=== PATIENT | female | born 1990 | race Caucasian/White ===

== ENCOUNTER 2021-12-17 21:57 | Emergency (ER) | payer BC, SELFPAY ==
[2021-12-18] MEDS ORDERED: Ketorolac Tromethamine 30 MG/ML VIAL ONE (00:48)
[2021-12-18 01:13] LABS: #Lymphocytes 0.9 thou/uL (1.20-3.40); #Monocytes 0.9 thou/uL (0.11-0.59); #Neutrophils 11.6 thou/uL (1.40-6.50); %Basophils 0.3 % (0.0-1.0); %Lymphocytes 6.4 % (21.0-51.0); %Monocytes 6.6 % (0.0-10.0); %Neutrophils 86.7 % (42.0-75.0); Mean Corpuscular HGB CONC 33.5 g/dL (32.0-36.0); Mean Corpuscular Hemoglobin 32.3 pg (27.0-31.0); Mean Corpuscular Volume 96.4 fL (78.0-98.0); Mean Platelet Volume 8.3 fL (7.4-10.4); Platelet Count 183 thou/uL (130-400); RBC Distribution Width 11.3 % (11.5-14.5); Red Blood Cell (RBC) Count 4.66 mill/uL (4.20-5.40); White Blood Cell (WBC) Count 13.4 thou/uL (4.8-10.8)
[2021-12-18 01:16] LABS: BHCG - Serum Negative (NEGATIVE); Pregs Control Background? CLEAR/WHITE (CLR/WHITE); Pregs Control Bar Appear? YES (CONTROL BAR)
[2021-12-18 01:32] LABS: ALT (SGPT) 8 U/L (8-55); AST (SGOT) 16 U/L (5-34); Albumin 4.7 g/dL (3.5-5.0); Alkaline Phosphatase 85 U/L (40-110); Anion Gap 19 mmol/L (10-20); BUN (Urea Nitrogen) 4 mg/dL (7.0-18.7); Bilirubin, Total 1.1 mg/dL (0.2-1.2); Calc. Creatinine Clearance 0 mL/min (70-130); Calcium 9.6 mg/dL (7.8-10.44); Carbon Dioxide 21 mmol/L (22-29); Chloride 98 mmol/L (98-107); Estimated GFR 109; Globulin 3.8 g/dL (2.4-3.5); Glucose 105 mg/dL (70-105); Lipase 4 U/L (8-78); Potassium 3.4 mmol/L (3.5-5.1); Protein, Total 8.5 g/dL (6.0-8.3); Sodium 135 mmol/L (136-145)
[2021-12-18] MEDS ORDERED: Ondansetron PF 4 MG/2 ML Vial ONE (04:50)
[2021-12-18 06:12] LABS: Bacteria/HPF None Seen HPF (None Seen); Bilirubin Negative (Negative); Blood, Urine Trace (Negative); Clarity Clear (Clear); Glucose, Urine (Dipstick) Normal (Negative); Ketone, Urine Trace mg/dL (Negative); Leukocyte Negative Leu/uL (Negative); Nitrite Negative (Negative); Protein, Urine (Dipstick) 10 mg/dL (Neg-Trace); Urobilinogen Normal mg/dL (Less than 2); pH, Urine 6.5 (5.0-9.0)
[2021-12-18 06:14] LABS: Specific Gravity, Urine 1.053 (1.002-1.036)
[2021-12-18] MEDS ORDERED: Iopamidol 370 76% 100 ML VIAL ONE (14:14)
== END 2021-12-18 06:29 | disposition home or self-care (01) ==
LOC: ERS 21:57
DX: R10.9 Unspecified abdominal pain (principal); R10.819 Abdominal tenderness, unspecified site; L40.9 Psoriasis, unspecified
CPT/HCPCS: 74177; 80053; 81003; 81015; 83690; 84703; 85025; 87086; 96374; 96375; J1885; J2405; Q9967

== ENCOUNTER 2021-12-18 13:14 | Inpatient (IN) | payer SELFPAY ==
[2021-12-18] MEDS ORDERED: Iopamidol 370 76% 50 ML VIAL FS ONE (14:35)
[2021-12-18] MEDS ORDERED: Iopamidol-370 76% 500 ML 1 ML ONE (14:35)
[2021-12-18] MEDS ORDERED: Ondansetron PF 4 MG/2 ML Vial ONE (14:57)
[2021-12-18] MEDS ORDERED: Ketorolac Tromethamine 30 MG/ML VIAL ONE (14:57)
[2021-12-18 15:03] LABS: Hemoglobin 13.8 g/dL (12.0-16.0); Mean Corpuscular HGB CONC 33.3 g/dL (32.0-36.0); Mean Corpuscular Hemoglobin 32.1 pg (27.0-31.0); Mean Corpuscular Volume 96.4 fL (78.0-98.0); Mean Platelet Volume 8.3 fL (7.4-10.4); Platelet Count 162 thou/uL (130-400); RBC Distribution Width 11.4 % (11.5-14.5); Red Blood Cell (RBC) Count 4.29 mill/uL (4.20-5.40); White Blood Cell (WBC) Count 20.3 thou/uL (4.8-10.8)
[2021-12-18 15:22] LABS: Band 27 % (5-11); Lymphocytes 5 % (21-51); MDiff Complete? YES; Metamyelocyte 3 % (0-0); Monocytes 4 % (0-10); Neutrophil 60 % (42-75); Platelet Morphology Comment Appears Adequate; RBC Morphology Normal
[2021-12-18 15:36] LABS: Anion Gap 19 mmol/L (10-20); BUN (Urea Nitrogen) 4 mg/dL (7.0-18.7); Calc. Creatinine Clearance 0 mL/min (70-130); Calcium 8.1 mg/dL (7.8-10.44); Carbon Dioxide 17 mmol/L (22-29); Chloride 100 mmol/L (98-107); Estimated GFR 116; Glucose 94 mg/dL (70-105); Protein, Total 7.1 g/dL (6.0-8.3); Sodium 132 mmol/L (136-145)
[2021-12-18 15:37] LABS: ALT (SGPT) 11 U/L (8-55); AST (SGOT) 24 U/L (5-34); Alkaline Phosphatase 78 U/L (40-110); Globulin 3.1 g/dL (2.4-3.5); Lipase Less than 4 U/L (8-78)
[2021-12-18 15:40] LABS: Bacteria/HPF None Seen HPF (None Seen); Bilirubin Negative (Negative); Blood, Urine Trace (Negative); Clarity Turbid (Clear); Glucose, Urine (Dipstick) Normal (Negative); Ketone, Urine 80 mg/dL (Negative); Leukocyte 25 Leu/uL (Negative); Nitrite Negative (Negative); Protein, Urine (Dipstick) Negative (Neg-Trace); RBC/HPF 0-3 HPF (0-3); Specific Gravity, Urine 1.008 (1.002-1.036); Urobilinogen Normal mg/dL (Less than 2)
[2021-12-18 16:03] LABS: BHCG - Serum Negative (NEGATIVE); Pregs Control Background? CLEAR/WHITE (CLR/WHITE); Pregs Control Bar Appear? YES (CONTROL BAR)
[2021-12-18 16:08] LABS: SARS-CoV-2 NAA Rapid Test Not Detected (NotDetected)
[2021-12-18 16:19] LABS: Magnesium 1.6 mg/dL (1.6-2.6)
[2021-12-18] MEDS ORDERED: Cefepime 2 GM VIAL ONE (16:25)
[2021-12-18] MEDS ORDERED: metroNIDAZOLE 500 MG/100 ML BAG ONE (17:10)
[2021-12-18] MEDS ORDERED: Morphine 4 MG/ML VIAL ONE (17:51)
[2021-12-18] MEDS ORDERED: Fentanyl 100 MCG/2 ML VIAL ONE ×2 (18:41→19:50)
[2021-12-18] MEDS ORDERED: Acetaminophen 325 MG TAB PO PRN (20:34)
[2021-12-18] MEDS ORDERED: Ondansetron PF 4 MG/2 ML Vial IVP PRN (20:34)
[2021-12-18 22:41] VITALS: BMI 25.4
[2021-12-18] MEDS: Sodium Chloride 0.9% 1,000 ML IV SCH ×2 (23:52→23:55)
[2021-12-18] MEDS: Senokot S 8.6-50 MG TAB PO SCH (23:58)
[2021-12-18] MEDS: Famotidine 20 MG TAB PO SCH (23:58)
[2021-12-19] MEDS ORDERED: Ketorolac Tromethamine 30 MG/ML VIAL IVP SCH (00:15)
[2021-12-19] MEDS: metroNIDAZOLE 500 MG in Premix Bag 1 BAG IVPB SCH ×2 (00:31→09:20)
[2021-12-19] MEDS: HYDROcodone/Acetaminophen 5/325 mg Tablet PO PRN ×2 (04:57→21:10)
[2021-12-19 05:39] LABS: #Lymphocytes 0.8 thou/uL (1.20-3.40); #Monocytes 0.8 thou/uL (0.11-0.59); #Neutrophils 11.8 thou/uL (1.40-6.50); %Basophils 0.1 % (0.0-1.0); %Eosinophils 0.2 % (0.0-10.0); %Lymphocytes 5.8 % (21.0-51.0); %Monocytes 6.1 % (0.0-10.0); %Neutrophils 87.8 % (42.0-75.0); Hemoglobin 11.5 g/dL (12.0-16.0); Mean Corpuscular HGB CONC 32.5 g/dL (32.0-36.0); Mean Corpuscular Hemoglobin 31.8 pg (27.0-31.0); Mean Corpuscular Volume 97.9 fL (78.0-98.0); Mean Platelet Volume 8.6 fL (7.4-10.4); Platelet Count 136 thou/uL (130-400); RBC Distribution Width 11.3 % (11.5-14.5); Red Blood Cell (RBC) Count 3.62 mill/uL (4.20-5.40); White Blood Cell (WBC) Count 13.4 thou/uL (4.8-10.8)
[2021-12-19 05:54] LABS: Anion Gap 12 mmol/L (10-20); BUN (Urea Nitrogen) 5 mg/dL (7.0-18.7); Calc. Creatinine Clearance 126 mL/min (70-130); Calcium 8.3 mg/dL (7.8-10.44); Carbon Dioxide 22 mmol/L (22-29); Chloride 101 mmol/L (98-107); Estimated GFR 120; Glucose 82 mg/dL (70-105); Potassium 3.3 mmol/L (3.5-5.1); Sodium 132 mmol/L (136-145)
[2021-12-19] MEDS: Enoxaparin Sodium 40 MG/0.4 ML SYRINGE SC SCH (09:19)
[2021-12-19] MEDS: Polyethylene Glycol 3350 17 GM Packet PO SCH (09:24)
[2021-12-19] MEDS: Famotidine 20 MG TAB PO SCH ×2 (09:24→20:47)
[2021-12-19] MEDS: Senokot S 8.6-50 MG TAB PO SCH ×2 (09:25→20:05)
[2021-12-19] MEDS: Sodium Chloride 0.9% 1,000 ML IV SCH (17:08)
[2021-12-19] MEDS: Cefepime 2 GM in Sodium Chloride 0.9% 100 ML IVPB SCH (20:49)
[2021-12-20] MEDS ORDERED: Lidocaine 5% Patch TD SCH (01:00)
[2021-12-20] MEDS: Sodium Chloride 0.9% 1,000 ML IV SCH ×4 (01:17→16:41)
[2021-12-20 05:29] LABS: #Eosinphils 0.1 thou/uL (0.0-0.7); #Lymphocytes 0.6 thou/uL (1.20-3.40); #Monocytes 0.7 thou/uL (0.11-0.59); #Neutrophils 7.7 thou/uL (1.40-6.50); %Basophils 0.2 % (0.0-1.0); %Eosinophils 0.6 % (0.0-10.0); %Monocytes 7.8 % (0.0-10.0); %Neutrophils 84.4 % (42.0-75.0); Hemoglobin 10.6 g/dL (12.0-16.0); Mean Corpuscular HGB CONC 32.8 g/dL (32.0-36.0); Mean Corpuscular Hemoglobin 32.3 pg (27.0-31.0); Mean Corpuscular Volume 98.5 fL (78.0-98.0); Mean Platelet Volume 8.5 fL (7.4-10.4); Platelet Count 135 thou/uL (130-400); RBC Distribution Width 11.3 % (11.5-14.5); Red Blood Cell (RBC) Count 3.28 mill/uL (4.20-5.40); White Blood Cell (WBC) Count 9.1 thou/uL (4.8-10.8)
[2021-12-20 05:45] LABS: Anion Gap 10 mmol/L (10-20); BUN (Urea Nitrogen) 5 mg/dL (7.0-18.7); Calc. Creatinine Clearance 128 mL/min (70-130); Calcium 8.4 mg/dL (7.8-10.44); Carbon Dioxide 24 mmol/L (22-29); Chloride 106 mmol/L (98-107); Estimated GFR 120; Glucose 98 mg/dL (70-105); Potassium 3.2 mmol/L (3.5-5.1); Sodium 137 mmol/L (136-145)
[2021-12-20] MEDS: Cefepime 2 GM in Sodium Chloride 0.9% 100 ML IVPB SCH ×2 (09:22→20:19)
[2021-12-20] MEDS: Famotidine 20 MG TAB PO SCH ×2 (09:23→20:20)
[2021-12-20] MEDS: Polyethylene Glycol 3350 17 GM Packet PO SCH (09:23)
[2021-12-20] MEDS: Enoxaparin Sodium 40 MG/0.4 ML SYRINGE SC SCH (09:23)
[2021-12-20] MEDS: Senokot S 8.6-50 MG TAB PO SCH ×2 (09:23→20:19)
[2021-12-20] MEDS: Ketorolac Tromethamine 30 MG/ML VIAL IVP PRN ×2 (10:18→21:26)
[2021-12-20] MEDS ORDERED: Lidocaine Patch Removal TOP SCH (13:00)
[2021-12-20 20:21] VITALS: TEMP 98.5
[2021-12-20] MEDS ORDERED: Dicyclomine 20 MG TAB PO PRN (21:28)
[2021-12-21] MEDS: Sodium Chloride 0.9% 1,000 ML IV SCH ×2 (01:12→09:32)
[2021-12-21] MEDS: HYDROcodone/Acetaminophen 5/325 mg Tablet PO PRN (03:47)
[2021-12-21] MEDS ORDERED: Lidocaine 5% Patch TD SCH (06:00)
[2021-12-21 06:10] LABS: #Lymphocytes 0.8 thou/uL (1.20-3.40); #Monocytes 0.8 thou/uL (0.11-0.59); %Basophils 0.2 % (0.0-1.0); %Eosinophils 0.4 % (0.0-10.0); %Lymphocytes 9.3 % (21.0-51.0); %Monocytes 9.4 % (0.0-10.0); %Neutrophils 80.8 % (42.0-75.0); Hemoglobin 10.4 g/dL (12.0-16.0); Mean Corpuscular HGB CONC 32.9 g/dL (32.0-36.0); Mean Corpuscular Hemoglobin 32.1 pg (27.0-31.0); Mean Corpuscular Volume 97.4 fL (78.0-98.0); Mean Platelet Volume 8.9 fL (7.4-10.4); Platelet Count 163 thou/uL (130-400); RBC Distribution Width 11.4 % (11.5-14.5); Red Blood Cell (RBC) Count 3.25 mill/uL (4.20-5.40); White Blood Cell (WBC) Count 8.7 thou/uL (4.8-10.8)
[2021-12-21 06:39] LABS: Anion Gap 10 mmol/L (10-20); BUN (Urea Nitrogen) 6 mg/dL (7.0-18.7); Calc. Creatinine Clearance 130 mL/min (70-130); Calcium 8.6 mg/dL (7.8-10.44); Carbon Dioxide 26 mmol/L (22-29); Chloride 105 mmol/L (98-107); Estimated GFR 121; Glucose 97 mg/dL (70-105); Iron 12 ug/dL (50-170); Iron Binding Capacity, Total 189 mcg/dL (265-497); Potassium 3.4 mmol/L (3.5-5.1); Sodium 138 mmol/L (136-145)
[2021-12-21 07:03] LABS: Ferritin 192.83 ng/mL (10-291)
[2021-12-21 08:35] VITALS: BP 126/85
[2021-12-21] MEDS: Famotidine 20 MG TAB PO SCH (09:41)
[2021-12-21] MEDS: Senokot S 8.6-50 MG TAB PO SCH (09:42)
[2021-12-21] MEDS: Cefepime 2 GM in Sodium Chloride 0.9% 100 ML IVPB SCH (09:42)
[2021-12-21] MEDS: Enoxaparin Sodium 40 MG/0.4 ML SYRINGE SC SCH (09:42)
[2021-12-21] MEDS: Polyethylene Glycol 3350 17 GM Packet PO SCH (09:42)
[2021-12-21] MEDS ORDERED: Potassium Chloride 20 MEQ TAB PO SCH ×2 (12:49→13:00)
[2021-12-21] MEDS ORDERED: Lidocaine Patch Removal TOP SCH (18:00)
[2021-12-26 18:05] LABS: EliA Celiac New Method **** NEW METHOD ****; Gliadin IgA Ab, Deamidated 1.6 EliAU/mL (<7 Negative); Gliadin IgG Ab, Deamidated Less than 0.4 EliAU/mL (<7 Negative); t-Transglutaminase (tTG) IgA 0.5 EliAU/mL (<7 Negative); t-Transglutaminase (tTG) IgG Less than 0.6 EliAU/mL (<7 Negative)
== END 2021-12-21 13:51 | disposition home or self-care (01) | DRG 872 ==
LOC: ERS 13:14 → MSONC 19:26
PROVIDERS: ADMIT Internal Medicine; ATTEND Internal Medicine
DX: A41.51 Sepsis due to Escherichia coli [E. coli] (principal); E87.1 Hypo-osmolality and hyponatremia; E87.2 Acidosis; K52.9 Noninfective gastroenteritis and colitis, unspecified; Z20.822 Contact with and (suspected) exposure to COVID-19; L40.9 Psoriasis, unspecified; F12.10 Cannabis abuse, uncomplicated; I73.00 Raynaud's syndrome without gangrene; F41.9 Anxiety disorder, unspecified; F32.A Depression, unspecified; L30.9 Dermatitis, unspecified; D64.9 Anemia, unspecified; Z87.11 Personal history of peptic ulcer disease; Z88.3 Allergy status to other anti-infective agents; Z91.011 Allergy to milk products; Z91.018 Allergy to other foods; Z79.899 Other long term (current) drug therapy; Z98.890 Other specified postprocedural states; Z83.2 Family history of diseases of the blood and blood-forming organs and certain disorders involving the immune mechanism
CPT/HCPCS: 36415; 71045; 74177; 80048; 82607; 82728; 83516; 83540; 83550; 83690; 83735; 84703; 85025; 86140; 87040; 87077; 87086; 87149; 87186; 93005; 96361; 96365; 96367; 96375; 96376; J0692; J1650; J1885; J1956; J2270; J2405; J3010; J3490; J7050; Q9967

== ENCOUNTER 2021-12-27 11:59 | Emergency (ER) | payer SELFPAY ==
[~2021-12-27 11:59] MED LIST: Iopamidol-370 76% 500 ML 1 ML ONE
[2021-12-27 13:06] LABS: #Lymphocytes 1.4 thou/uL (1.20-3.40); #Monocytes 0.7 thou/uL (0.11-0.59); #Neutrophils 7.4 thou/uL (1.40-6.50); %Basophils 0.2 % (0.0-1.0); %Eosinophils 0.5 % (0.0-10.0); %Lymphocytes 14.3 % (21.0-51.0); %Monocytes 7.1 % (0.0-10.0); Hemoglobin 13.8 g/dL (12.0-16.0); Mean Corpuscular HGB CONC 31.8 g/dL (32.0-36.0); Mean Corpuscular Hemoglobin 30.5 pg (27.0-31.0); Mean Corpuscular Volume 95.8 fL (78.0-98.0); Platelet Count 559 thou/uL (130-400); RBC Distribution Width 11.9 % (11.5-14.5); Red Blood Cell (RBC) Count 4.54 mill/uL (4.20-5.40); White Blood Cell (WBC) Count 9.5 thou/uL (4.8-10.8)
[2021-12-27 13:15] LABS: BHCG - Serum Negative (NEGATIVE); Pregs Control Background? CLEAR/WHITE (CLR/WHITE); Pregs Control Bar Appear? YES (CONTROL BAR)
[2021-12-27 13:29] LABS: ALT (SGPT) 14 U/L (8-55); AST (SGOT) 22 U/L (5-34); Albumin 3.9 g/dL (3.5-5.0); Alkaline Phosphatase 84 U/L (40-110); Anion Gap 16 mmol/L (10-20); BUN (Urea Nitrogen) 5 mg/dL (7.0-18.7); Bilirubin, Total 0.3 mg/dL (0.2-1.2); Calc. Creatinine Clearance 0 mL/min (70-130); Calcium 9.4 mg/dL (7.8-10.44); Carbon Dioxide 23 mmol/L (22-29); Chloride 99 mmol/L (98-107); Estimated GFR 104; Globulin 4.7 g/dL (2.4-3.5); Glucose 106 mg/dL (70-105); Potassium 4.1 mmol/L (3.5-5.1); Protein, Total 8.6 g/dL (6.0-8.3); Sodium 134 mmol/L (136-145)
[2021-12-27 14:29] LABS: Bacteria/HPF None Seen HPF (None Seen); Bilirubin Negative (Negative); Blood, Urine 3+ (Negative); Clarity Clear (Clear); Glucose, Urine (Dipstick) Normal (Negative); Ketone, Urine 10 mg/dL (Negative); Leukocyte 25 Leu/uL (Negative); Nitrite Negative (Negative); Protein, Urine (Dipstick) Negative (Neg-Trace); RBC/HPF 21-50 HPF (0-3); Specific Gravity, Urine 1.007 (1.002-1.036); Squamous Epithelial 0-3 HPF (0-3); Urobilinogen Normal mg/dL (Less than 2); WBC/HPF 0-3 HPF (0-3); pH, Urine 6.5 (5.0-9.0)
[2021-12-27] MEDS ORDERED: Fentanyl 100 MCG/2 ML VIAL ONE (14:39)
[2021-12-27] MEDS ORDERED: Ondansetron PF 4 MG/2 ML Vial ONE (14:39)
== END 2021-12-27 15:53 | disposition home or self-care (01) ==
LOC: ERS 11:59
DX: R50.9 Fever, unspecified (principal); R10.9 Unspecified abdominal pain
CPT/HCPCS: 36415; 74177; 80053; 81003; 81015; 82550; 83605; 83690; 84703; 85025; 87040; 87086; 94760; 96374; 96375; J2405; J3010; Q9967

== ENCOUNTER 2021-12-31 13:40 | Observation (INO) | payer SELFPAY ==
[2021-12-31] MEDS ORDERED: Acetaminophen 325 MG TAB PO PRN (14:36)
[2021-12-31 16:07] LABS: #Basophils 0.1 thou/uL (0.0-0.2); #Eosinphils 0.1 thou/uL (0.0-0.7); #Lymphocytes 1.7 thou/uL (1.20-3.40); #Monocytes 0.6 thou/uL (0.11-0.59); #Neutrophils 6.1 thou/uL (1.40-6.50); %Basophils 0.8 % (0.0-1.0); %Eosinophils 0.8 % (0.0-10.0); %Lymphocytes 19.5 % (21.0-51.0); %Monocytes 7.2 % (0.0-10.0); %Neutrophils 71.7 % (42.0-75.0); Hemoglobin 12.8 g/dL (12.0-16.0); Mean Corpuscular HGB CONC 32.2 g/dL (32.0-36.0); Mean Corpuscular Hemoglobin 30.7 pg (27.0-31.0); Mean Corpuscular Volume 95.4 fL (78.0-98.0); Mean Platelet Volume 7.1 fL (7.4-10.4); Platelet Count 597 thou/uL (130-400); Red Blood Cell (RBC) Count 4.18 mill/uL (4.20-5.40); White Blood Cell (WBC) Count 8.6 thou/uL (4.8-10.8)
[2021-12-31 16:30] LABS: ALT (SGPT) 11 U/L (8-55); AST (SGOT) 17 U/L (5-34); Albumin 3.7 g/dL (3.5-5.0); Alkaline Phosphatase 71 U/L (40-110); Anion Gap 14 mmol/L (10-20); BUN (Urea Nitrogen) 8 mg/dL (7.0-18.7); Bilirubin, Total 0.3 mg/dL (0.2-1.2); CRP (Inflammatory) 4.85 mg/dL (= or < 0.5); Calc. Creatinine Clearance 101 mL/min (70-130); Calcium 9.1 mg/dL (7.8-10.44); Carbon Dioxide 26 mmol/L (22-29); Chloride 94 mmol/L (98-107); Estimated GFR 99; Globulin 4.3 g/dL (2.4-3.5); Glucose 87 mg/dL (70-105); Potassium 4.2 mmol/L (3.5-5.1); Sodium 130 mmol/L (136-145)
[2021-12-31] MEDS ORDERED: Ondansetron ODT 4 MG TAB PO PRN (17:55)
[2021-12-31] MEDS: cefTRIAXone\\ROCEPHIN 2 GM in Sodium Chloride 0.9% 100 ML IVPB SCH (17:55)
[2021-12-31 18:31] LABS: HIV (1/2) Antibody/Antigen Non-Reactive (NonReactive); HIV 1/2 INDEX 0.12 S/CO (<1.00)
[2021-12-31 21:56] LABS: Bacteria/HPF None Seen HPF (None Seen); Bilirubin Negative (Negative); Blood, Urine Negative (Negative); Clarity Clear (Clear); Glucose, Urine (Dipstick) Normal (Negative); Ketone, Urine Negative (Negative); Leukocyte Negative Leu/uL (Negative); Nitrite Negative (Negative); Protein, Urine (Dipstick) Negative (Neg-Trace); RBC/HPF 0-3 HPF (0-3); Specific Gravity, Urine 1.005 (1.002-1.036); Squamous Epithelial 0-3 HPF (0-3); Urobilinogen Normal mg/dL (Less than 2); WBC/HPF None Seen HPF (0-3); pH, Urine 7.5 (5.0-9.0)
[2021-12-31 21:59] LABS: Pregnancy Test - Urine (BHCG) Negative (Negative); Urine Culture Reflex No No
[2021-12-31 22:00] LABS: Pregu Control Background? CLEAR/WHITE (CLR/WHITE); Pregu Control Bar Appear? YES (CONTROL BAR); Specific Gravity 1.005 (1.002-1.036)
[2022-01-01 05:51] LABS: #Basophils 0.1 thou/uL (0.0-0.2); #Eosinphils 0.1 thou/uL (0.0-0.7); #Lymphocytes 1.7 thou/uL (1.20-3.40); #Monocytes 0.8 thou/uL (0.11-0.59); #Neutrophils 4.4 thou/uL (1.40-6.50); %Basophils 1.1 % (0.0-1.0); %Eosinophils 1.3 % (0.0-10.0); %Lymphocytes 23.8 % (21.0-51.0); %Monocytes 11.9 % (0.0-10.0); %Neutrophils 61.9 % (42.0-75.0); Hemoglobin 12.5 g/dL (12.0-16.0); Mean Corpuscular Hemoglobin 30.6 pg (27.0-31.0); Mean Corpuscular Volume 95.7 fL (78.0-98.0); Mean Platelet Volume 6.5 fL (7.4-10.4); Platelet Count 536 thou/uL (130-400); RBC Distribution Width 11.9 % (11.5-14.5); Red Blood Cell (RBC) Count 4.08 mill/uL (4.20-5.40); White Blood Cell (WBC) Count 7.1 thou/uL (4.8-10.8)
[2022-01-01 06:10] LABS: Anion Gap 12 mmol/L (10-20); BUN (Urea Nitrogen) 5 mg/dL (7.0-18.7); Calc. Creatinine Clearance 99 mL/min (70-130); Calcium 9.3 mg/dL (7.8-10.44); Carbon Dioxide 27 mmol/L (22-29); Chloride 100 mmol/L (98-107); Estimated GFR 96; Glucose 87 mg/dL (70-105); Potassium 4.5 mmol/L (3.5-5.1); Sodium 134 mmol/L (136-145)
[2022-01-01] MEDS: Lidocaine 5% Patch TD SCH (09:29)
[2022-01-01 12:43] LABS: Syphilis Antibody Nonreactive (Nonreactive); Syphilis Antibody Index 0.09 S/CO (<1.00 Non-Reactive)
[2022-01-01 14:36] VITALS: BMI 23.9
[2022-01-01] MEDS: Ketorolac Tromethamine 10 MG TAB PO PRN ×2 (15:37→22:04)
[2022-01-01] MEDS: cefTRIAXone\\ROCEPHIN 2 GM in Sodium Chloride 0.9% 100 ML IVPB SCH (17:25)
[2022-01-01] MEDS ORDERED: Famotidine 40 MG/5 ML Oral Suspension PO SCH (21:00)
[2022-01-01] MEDS ORDERED: Transdermal Patch Removal TOP SCH (21:00)
[2022-01-01] MEDS: Famotidine 40 MG/5 ML Oral Suspension PO SCH (21:52)
[2022-01-02] MEDS: Ketorolac Tromethamine 10 MG TAB PO PRN (05:56)
[2022-01-02 08:15] VITALS: BP 114/73; TEMP 98.1
[2022-01-02] MEDS: Lidocaine 5% Patch TD SCH (08:41)
[2022-01-02] MEDS: Famotidine 40 MG/5 ML Oral Suspension PO SCH (08:42)
[2022-01-02] MEDS ORDERED: Saccharomyces boulardii 250 MG CAP PO SCH (09:00)
[2022-01-02] MEDS ORDERED: Cefdinir 300 MG CAP PO SCH (09:46)
[2022-01-04 13:21] LABS: ANA Symphony (Qualitative) Negative (Negative); ANA Symphony (Quantitative) 0.4 Ratio (< 0.7 Negative); dsDNA IgG Antibody 0.7 IU/mL (<10 Negative)
[2022-01-04 14:18] LABS: CCP IgG Antibody 4.3 EliAU/mL (<7 Negative); EliA RAS New Method **** NEW METHOD ****
[2022-01-04 14:19] LABS: EliA RAS New Method **** NEW METHOD ****; Rheumatoid Factor IgM Antibody 2.3 IU/mL (<3.5 Negative)
== END 2022-01-02 11:49 | disposition home or self-care (01) ==
LOC: T4-B 14:48
PROVIDERS: ADMIT Student in an Organized Health Care Education/Training Program; ATTEND Student in an Organized Health Care Education/Training Program
DX: R78.81 Bacteremia (principal); B96.20 Unspecified Escherichia coli [E. coli] as the cause of diseases classified elsewhere; E87.1 Hypo-osmolality and hyponatremia; R07.81 Pleurodynia; R10.32 Left lower quadrant pain; R10.12 Left upper quadrant pain; L40.50 Arthropathic psoriasis, unspecified; I73.00 Raynaud's syndrome without gangrene; Z79.899 Other long term (current) drug therapy; Z88.0 Allergy status to penicillin; Z91.011 Allergy to milk products; Z91.018 Allergy to other foods; Z20.822 Contact with and (suspected) exposure to COVID-19
CPT/HCPCS: 36415; 71045; 80048; 80053; 81001; 81025; 81374; 82533; 82550; 83520; 83605; 83690; 83930; 83935; 84145; 84300; 84443; 85025; 85652; 86038; 86140; 86200; 86225; 86780; 87040; 87086; 87389; 93005; 93010; 96374; 96376; G0378; J0696; J3490; U0003; U0005

== ENCOUNTER 2023-10-05 06:48 | Day surgery (SDC) | payer OTHER ==
[2023-10-05] MEDS ORDERED: PROPOFOL 40 ML ONE (07:17)
[2023-10-05] MEDS ORDERED: PROPOFOL 60 ML ONE (08:11)
[2023-10-05] MEDS ORDERED: Lidocaine 2% PF 5 ML VIAL ONE (08:34)
[2023-10-05] MEDS ORDERED: Glycopyrrolate 0.2 MG/ML 5 ML SYRINGE ONE (08:40)
== END 2023-10-05 09:45 | disposition home or self-care (01) ==
LOC: SDC 06:48
PROVIDERS: ATTEND Internal Medicine Gastroenterology
PROC: 0DJ08ZZ Inspection of Upper Intestinal Tract, Via Natural or Artificial Opening Endoscopic (ICD-10-PCS; principal; 2023-10-05)
PROC: 0DJD8ZZ Inspection of Lower Intestinal Tract, Via Natural or Artificial Opening Endoscopic (ICD-10-PCS; principal; 2023-10-05)
DX: K21.9 Gastro-esophageal reflux disease without esophagitis (principal); K44.9 Diaphragmatic hernia without obstruction or gangrene; R19.7 Diarrhea, unspecified; R10.9 Unspecified abdominal pain; F17.210 Nicotine dependence, cigarettes, uncomplicated
CPT/HCPCS: J2001; J2704

== ENCOUNTER 2024-03-01 14:40 | Outpatient (CLI) | payer OTHER | END 2024-03-01 14:41 | disposition home or self-care (01) | LOC: LABBT 14:40 | PROVIDERS: ATTEND Otolaryngology Plastic Surgery within the Head & Neck | DX: Z01.812 Encounter for preprocedural laboratory examination (principal); J35.01 Chronic tonsillitis | CPT/HCPCS: 85014 ==

== ENCOUNTER 2024-03-06 06:40 | Day surgery (SDC) | payer OTHER ==
[2024-03-01 15:19] VITALS: BMI 31.8
[2024-03-06] MEDS ORDERED: Scopolamine 1 mg/72 hour Patch ONE (07:58)
[2024-03-06] MEDS ORDERED: Midazolam HCl 2 mg/2 ml Vial ONE (08:04)
[2024-03-06] MEDS ORDERED: Famotidine/PF 20 mg/2ml Vial ONE (08:04)
[2024-03-06] MEDS ORDERED: Dexamethasone 20 MG/5 ML VIAL ONE (08:08)
[2024-03-06] MEDS ORDERED: fentaNYL PF 100 MCG/2 ML SYRINGE ONE ×3 (08:08→09:25)
[2024-03-06] MEDS ORDERED: Ondansetron PF 4 MG/2 ML Vial ONE (08:08)
[2024-03-06] MEDS ORDERED: Lidocaine 1% PF 5 ML VIAL ONE (08:08)
[2024-03-06] MEDS ORDERED: PROPOFOL 40 ML ONE (08:08)
[2024-03-06] MEDS ORDERED: methylPREDNISolone Acetate 40 mg/ml Vial ONE (08:24)
[2024-03-06] MEDS ORDERED: Hydrocodone-Acetamin 15 ML UDCUP ONE (10:21)
== END 2024-03-06 11:19 | disposition home or self-care (01) ==
LOC: SDC 06:40
PROVIDERS: ATTEND Otolaryngology Plastic Surgery within the Head & Neck
PROC: 0CTPXZZ Resection of Tonsils, External Approach (ICD-10-PCS; principal; 2024-03-06)
PROC: 0CTQXZZ Resection of Adenoids, External Approach (ICD-10-PCS; principal; 2024-03-06)
DX: J35.3 Hypertrophy of tonsils with hypertrophy of adenoids (principal); J35.01 Chronic tonsillitis; J45.909 Unspecified asthma, uncomplicated; F32.A Depression, unspecified; F41.9 Anxiety disorder, unspecified; G47.33 Obstructive sleep apnea (adult) (pediatric); Z88.0 Allergy status to penicillin; Z88.5 Allergy status to narcotic agent
CPT/HCPCS: 88304; J1030; J1100; J2250; J2405; J2704; J3490

== ENCOUNTER 2024-03-19 13:10 | Emergency (ER) | payer OTHER ==
[2024-03-19 13:59] LABS: #Basophils 0.04 10x3/uL (0.0-0.2); %Basophils 0.4 % (0.0-1.0); %Eosinophils 0.7 % (0.0-10.0); %Monocytes 6.2 % (0.0-10.0); %Neutrophils 68.5 % (42.0-75.0); Hematocrit 39.9 % (36.0-47.0); Mean Corpuscular HGB CONC 32.6 g/dL (32.0-36.0); Mean Corpuscular Hemoglobin 30.8 pg (27.0-31.0); Mean Corpuscular Volume 94.5 fL (78.0-98.0); Mean Platelet Volume 10.1 fL (7.4-10.4); Platelet Count 312 10x3/uL (130-400); RBC Distribution Width 13.2 % (11.5-14.5); Red Blood Cell (RBC) Count 4.22 mill/uL (4.20-5.40)
[2024-03-19 14:10] LABS: ALT (SGPT) 17 U/L (8-55); AST (SGOT) 17 U/L (5-34); Albumin 3.6 g/dL (3.5-5.0); Alkaline Phosphatase 85 U/L (40-110); Anion Gap 12 mmol/L (10-20); BUN (Urea Nitrogen) 5 mg/dL (7.0-18.7); Bilirubin, Total 0.3 mg/dL (0.2-1.2); Calc. Creatinine Clearance 0 mL/min (70-130); Calcium 8.6 mg/dL (7.8-10.44); Carbon Dioxide 25 mmol/L (22-29); Chloride 107 mmol/L (98-107); Estimated GFR 117; Globulin 3.2 g/dL (2.4-3.5); Glucose 86 mg/dL (70-105); Potassium 3.5 mmol/L (3.5-5.1); Protein, Total 6.8 g/dL (6.0-8.3); Sodium 140 mmol/L (136-145)
[2024-03-19] MEDS ORDERED: Dexamethasone 20 MG/5 ML VIAL ONE (14:35)
[2024-03-19] MEDS ORDERED: PROPOFOL 200 MG/20 ML VIAL ONE (14:35)
[2024-03-19] MEDS ORDERED: Lidocaine 1% PF 5 ML VIAL ONE (14:35)
[2024-03-19] MEDS ORDERED: SUCCINYLCHOLINE/SOD CL,ISO/PF 200 MG/10 ML SYRINGE FS ONE (14:35)
[2024-03-19] MEDS ORDERED: fentaNYL 50 mcg/mL 1 mL Vial ONE ×2 (15:12→15:52)
[2024-03-19] MEDS ORDERED: HYDROmorphone 0.5 MG/0.5 ML SYRINGE ONE (15:23)
== END 2024-03-19 14:07 | disposition admitted as inpatient to this hospital (09) ==
LOC: ERS 13:10
DX: J95.831 Postprocedural hemorrhage of a respiratory system organ or structure following other procedure (principal); F17.210 Nicotine dependence, cigarettes, uncomplicated
CPT/HCPCS: 36415; 80053; 85025; 86850; 86900; 86901; 93005; J1100; J1170; J2250; J2405; J2704; J3010; J3490